=== PATIENT | female | born 1975 | race Caucasian/White ===

== ENCOUNTER 2016-10-02 00:15 | Day surgery (SDC) | payer BC ==
[2016-09-30 11:56] VITALS: BP 129/82
[2016-09-30 12:36] LABS: BASOPHIL # 0.1 10^3/uL (0.0-0.1); BASOPHIL % 0.4 % (0.0-0.2); EOSINOPHIL # 0.2 10^3/uL (0.0-0.2); EOSINOPHIL % 1.6 % (0.0-5.0); HEMATOCRIT 42.7 % (36.0-46.0); HEMOGLOBIN 14.6 g/dL (12.0-15.0); LYMPHOCYTES # 3.3 10^3/uL (1.0-4.8); LYMPHOCYTES % 24.8 % (24.0-44.0); MEAN CELL HGB 31.7 pg (26-34); MEAN CELL HGB CONCENTRATION 34.2 g/dL (33-37); MEAN CORP VOLUME 92.8 fL (78-100); MEAN PLATELET VOLUME 9.9 fL (7.8-11.0); MONOCYTES # 0.6 10^3/uL (0.3-0.8); MONOCYTES % 4.8 % (5.0-12.0); NEUTROPHIL # 9.2 10^3/uL (1.8-7.7); NEUTROPHILS % 68.3 % (41.0-85.0); RED BLOOD CELL 4.6 10^6/uL (4.00-5.20); RED CELL DISTRIBUTION WIDTH 12.5 % (11.5-14.5); WHITE BLOOD CELL 13.4 10^3/uL (4.5-11.0)
[2016-09-30 12:55] LABS: ANION GAP 18.4; CALCIUM 9.4 mg/dL (8.4-10.5); CARBON DIOXIDE 21.3 mmol/L (20.0-32); CREATININE SERUM 0.71 mg/dL (0.59-1.40); GLUCOSE 120 mg/dL (70-110)
[2016-09-30 13:21] LABS: INR 0.9; PARTIAL THROMBOPLASTIN TIME 25.6 SEC (24.67-30.72); PROTHROMBIN PROTIME 9.8 SEC (9.8-11.9)
--- NOTE | 2016-09-30 14:33 | DIREP ---
PROCEDURE:CHEST 2 VIEWS COMPARISON:None. INDICATIONS:PREOP CATH FINDINGS: LUNGS/PLEURA:No significant pulmonary parenchymal abnormalities. No effusions. VASCULATURE:Normal. Unremarkable pulmonary vasculature. CARDIAC:Normal. No cardiac silhouette abnormality or cardiomegaly. MEDIASTINUM:Normal. No visible mass or adenopathy. BONES:Normal. No fracture or visible bony lesion. OTHER:Negative. CONCLUSION:Normal examination. Dictated by: Elian Coulter Jr. on 09/30/2016 at 02:31 PM
[~2016-10-02] VITALS: Ht 165.1 cm; Wt 77.6 kg
[2016-10-02] VITALS (16 sets, daily range): BP systolic 109–149; BP diastolic 68–86
[~2016-10-02 00:15] MED LIST: ASPI-484 PO; ATOR40TA PO; MELO-174 PO; METO25TA4 PO
[2016-10-02] MEDS ORDERED: NS 1000ML 1,000 ML ONE ×2 (05:05→06:31)
[2016-10-02] MEDS ORDERED: PHENERGAN PO ONE (06:00)
[2016-10-02] MEDS ORDERED: NS 1000ML 1,000 ML IV SCH (06:00)
[2016-10-02] MEDS ORDERED: VALIUM PO ONE (06:00)
[2016-10-02] MEDS ORDERED: PHENERGAN ONE (06:07)
[2016-10-02] MEDS ORDERED: VALIUM ONE (06:08)
[2016-10-02] MEDS ORDERED: HEPARIN ONE (06:31)
[2016-10-02] MEDS ORDERED: SUBLIMAZE ONE (06:31)
[2016-10-02] MEDS ORDERED: XYLOCAINE ONE (06:32)
[2016-10-02] MEDS ORDERED: VERSED ONE (06:32)
--- NOTE | 2016-10-02 09:41 | [facility] ---
DATE OF SERVICE: 10/02/2016 PRECATHETERIZATION DIAGNOSES: History of palpitations, chest pain, abnormal myocardial perfusion scan with abnormal TID, and focal apical hypoperfusion, history of dyslipidemia. POSTCATHETERIZATION DIAGNOSES: Left main is very short and there is ventricularization of the aortic pressure on cannulation of the left main and there is no left main disease, it is very small with immediate bifurcation to LAD and circumflex, both LAD and circumflex are small caliber vessel without any plaque and appeared to be patent. The right coronary artery is a dominant vessel with the side branches again being very, very small caliber vessels and there is no flow obstructive disease documented. Left ventricle is normal in size with good wall contractility, ejection fraction is 60%. ANESTHESIA: 2% lidocaine in the right groin. PREOPERATIVE MEDICATIONS: Phenergan 50 mg p.o., Valium 2.5 mg p.o., Versed 1 mg IV and fentanyl 12.5 mcg IV. ANTICOAGULATION: Heparin 2000 units intra-arterially, 2000 units in the flush solution, 1000 units in the dye solution. Dye is Omnipaque. Total amount is 79 mL. CATHETERS: JL4 6-Icelandic, JR4 6-Icelandic, and 6-Icelandic angled pigtail catheter. ARTERIAL TIME: 17 minutes. FLUOROSCOPY TIME: 2.4 minutes. PROCEDURES: Left heart catheterization, bilateral selective coronary arteriography, left ventriculography via right femoral Celeste approach. NARRATION OF PROCEDURE: Under local anesthesia, the right femoral artery was punctured using open needle technique, and 6-Icelandic Cordis sheath was introduced into the femoral artery. Side port of the sheath was used for continuous monitoring of femoral arterial pressure. Subsequently, JL4 6-Icelandic left Celeste coronary catheter was introduced over a guidewire and navigated across the ascending aorta, and selective cannulation of left coronary artery was achieved. Left coronary arteriography was performed in GAMBIAN and DE PAZ projections using craniocaudal angulations for adequate visualization of all the branches. This catheter was then exchanged with JR4 6-Icelandic right coronary catheter which was manipulated, and selective cannulation of right coronary artery was achieved. Right coronary arteriography was performed in GAMBIAN and AP projections. Right coronary catheter was then exchanged with 6-Icelandic angled pigtail catheter which was navigated across the aortic valve. Hemodynamics were measured, and left ventriculography was performed in 30-degree DE PAZ projection using 35 mL of Isovue at 12 mL/sec at 600 PSI. Patient tolerated the procedure well. HEMODYNAMICS: LVEDP is 12 mm, LV pressure 130/12, femoral artery pressure 136/57 with a mean of 75. No gradient across the aorta on pullback of the central catheter. FINAL CONCLUSION: Short left main with ventricularization of the pressure, no left main disease, immediate bifurcation LAD and circumflex, small caliber LAD and circumflex fully patent, dominant right coronary artery without any flow obstruction, side branch is very small and patent right coronary artery, intact LV systolic function. RECOMMENDATIONS: At this time, risk factor modification and continuation aspirin and on low dose beta chris, metoprolol. Her right femoral artery went into spasm. Hence manual pressure was applied and good distal pulses were felt. Angio-Seal was not deployed. Laxmichand MD Jose Angel DR: RAMÓN/heladio JOB# [id number] CC: Rylee Ayers NP
== END 2016-10-02 12:35 | disposition home or self-care (01) ==
LOC: SDC 00:15
PROVIDERS: ATTEND Specialist
DX: E78.5 Hyperlipidemia, unspecified (principal)
CPT/HCPCS: 36415; 71020; 80048; 84703; 85025; 85610; 85730; 93458; C1894 ×3; J1644 ×2; J2250; J3010; J7030 ×2; Q9967; 81025

== ENCOUNTER → 2019-03-03 | Outpatient (CLI) | payer OTHER ==
[~2019-03-03] MED LIST changes: -MELO-174 PO; +MELO15TA24 PO
--- NOTE | 2019-03-03 13:48 | DIREP ---
PROCEDURE:US BREAST-RT CONCLUSION:Please refer to the accompanying Diagnostic Mammogram Report, which will be available once transcribed and signed. Dictated by: Jordy Rivera MD on 03/03/2019 at 01:47 PM
--- NOTE | 2019-03-03 13:48 | DIREP ---
PROCEDURE:MAMMO BILATERAL DIAGNOSTIC; RIGHT BREAST ULTRASOUND COMPLETE COMPARISON:[facility], US, US BREAST COMPLETE - RT, 03/03/2019, 12:47 PM. [facility] [place], , DIGITAL MAMMOGRAM SCREENING OUTREACH, 10/12/2015, 09:29 AM. INDICATIONS:N64.9 DISORDER OF BREAST, RIGHT BREAST NODULE BREAST COMPOSITION:There are scattered areas of fibroglandular density. DIAGNOSTIC MAMMOGRAM:2 standard views both breasts were supplemented by spot compression magnification 2 projections upper-outer quadrant of the right breast, all with a radiodense marker at the 11 o'clock radial 8 cm from the right nipple, the site where the patient reported a palpable abnormality had been detected. There is no lesions subjacent to the radiodense marker in the upper outer quadrant of the right breast, proximal aspect. Comparison with 2016 shows no interval change in the parenchymal pattern. The left breast is also stable and unchanged Computer Assisted Detection (CAD) was utilized. BREAST SONOGRAM:Complete ultrasound of right breast includes all 4 quadrants, subareolar, and the axillary region. Particular attention was paid to the 11 o'clock radial 8 cm from the nipple, the site of the mammographic marker indicating presumed location of palpable abnormality. No lesions are identified. All 4 quadrants were examined. The subareolar region is benign. The axilla is negative IMPRESSION:No mammographic evidence of malignancy. RECOMMENDATIONS: ROUTINE MAMMOGRAM AND CLINICAL EVALUATION. Repeat routine screening mammogram in one year based on [employer] Guidelines. OVERALL FINAL ASSESSMENT: BI RADS 1- Negative. Dictated by: Jordy Rivera MD on 03/03/2019 at 01:43 PM
--- NOTE | 2019-03-03 15:44 | DIREP ---
PROCEDURE:US PELVIC FOLLOWED BY TRANSVAGINAL COMPARISON:None. INDICATIONS:R10.2 PELVIC AND PERINEAL PAIN TECHNIQUE:Pelvic ultrasound using transabdominal technique. Endovaginal images were also obtained for better assessment of the uterus and adnexa. FINDINGS: LMP: 02/21/2019 UTERUS:Size is 8.1 x 6.8 x 4.4 cm. The myometrium is homogeneous. Solid heterogeneous lesion identified in the fundus measuring 2.5 x 2.5 x 2.0 cm. ENDOMETRIUM:Thickness is 1.5 cm. Although it is difficult due to the obliquity of the uterus in the pelvis, there appears to be a subtle near isoechoic/minimally hypoechoic mass within the endometrium measuring 2 x 1.2 x 0.9 cm. This may represent a retained blood clot but underlying endometrial mass or polyp is not excluded. No definite internal vascularity on the provided color Doppler images. RIGHT OVARY:Normal appearance. 3.8 x 2.9 x 2.4 cm. LEFT OVARY:Normal appearance. 3.9 x 2.2 x 1.7 cm. CUL-DE-SAC:Normal. OTHER:Negative. CONCLUSION: 1. Findings suspicious for an endometrial mass, recommend correlation with endometrial sampling and saline infusion sonography or hysteroscopy may add additional information. A retained blood clot or polyp could be considered, endometrial malignancy not excluded. 2. Uterus: Myometrial leiomyoma. Dictated by: KAYLEN Physician on 03/03/2019 at 02:07 PM
== END | disposition home or self-care (01) ==
LOC: RAD 11:50
PROVIDERS: ATTEND Nurse Practitioner Family
DX: D25.9 Leiomyoma of uterus, unspecified (principal); N64.9 Disorder of breast, unspecified; N63.10 Unspecified lump in the right breast, unspecified quadrant
CPT/HCPCS: 76641; 76830; 76856; 77066

== ENCOUNTER → 2020-03-28 | Outpatient (CLI) | payer OTHER ==
[~2020-03-28] MED LIST changes: -ASPI-484 PO; +ASPI-485 PO
--- NOTE | 2020-03-28 16:27 | DIREP ---
PROCEDURE:Digital Screening Mammogram TECHNIQUE:MLO, CC, and XCCL digital images of each breast are provided. Computer Assisted Detection (CAD) was utilized. COMPARISON:[facility], , DIGITAL MAMMOGRAM SCREENING OUTREACH, 10/12/2015, 09:29 AM. [facility], , MAMMO BILATERAL DIAGNOSTIC, 03/03/2019, 12:18 PM. INDICATIONS:SCREENING BREAST COMPOSITION:There are scattered areas of fibroglandular density. FINDINGS:There are no grouped microcalcifications, masses, or architectural distortions to suggest malignancy. There is no significant change as compared with the previous examination(s). IMPRESSION:No mammographic evidence of malignancy. RECOMMENDATIONS:Routine Screening Mammography per [employer] guidelines. OVERALL FINAL ASSESSMENT:BI-RADS 1 - Negative Mammogram Note: This facility participates in a mammography screening patient reminder system. Dictated by: Rajendra Chavez M.D. on 03/28/2020 at 04:24 PM
== END | disposition home or self-care (01) ==
LOC: RAD 15:45
PROVIDERS: ATTEND Nurse Practitioner Family
DX: Z12.31 Encounter for screening mammogram for malignant neoplasm of breast (principal)
CPT/HCPCS: 77067

== ENCOUNTER → 2020-05-10 | Outpatient (CLI) | payer OTHER | END | disposition home or self-care (01) | LOC: NPLAB 09:51 | PROVIDERS: ATTEND Nurse Practitioner Family | DX: Z00.5 Encounter for examination of potential donor of organ and tissue (principal) | CPT/HCPCS: 36415; 82565 ==

== ENCOUNTER → 2020-07-04 | Outpatient (CLI) | payer OTHER ==
[2020-07-04 12:52] LABS: APPEARANCE,URINE CLEAR (CLEAR); BILIRUBIN,URINE NEGATIVE (NEGATIVE); UA COLOR YELLOW (YELLOW); UROBILINOGEN,URINE NORMAL (NEGATIVE)
== END | disposition home or self-care (01) ==
LOC: NPLAB 11:52
PROVIDERS: ATTEND Internal Medicine Nephrology
DX: Z00.5 Encounter for examination of potential donor of organ and tissue (principal)
CPT/HCPCS: 36415; 81000; 82043; 82565; 82570; 87086

== ENCOUNTER → 2020-07-26 | Outpatient (CLI) | payer OTHER | END | disposition home or self-care (01) | LOC: NPLAB 10:34 | PROVIDERS: ATTEND Nurse Practitioner Family | DX: R82.90 Unspecified abnormal findings in urine (principal) | CPT/HCPCS: 87086 ==

== ENCOUNTER → 2020-11-10 | Outpatient (CLI) | payer OTHER ==
[2020-11-10 11:59] LABS: CARBON DIOXIDE 24.5 mmol/L (20.0-32)
[2020-11-10 12:11] LABS: BILIRUBIN,URINE NEGATIVE (NEGATIVE); UA COLOR YELLOW; UROBILINOGEN,URINE 0.2 E.U./dL (0.2)
== END | disposition home or self-care (01) ==
LOC: NPLAB 10:50
PROVIDERS: ATTEND Internal Medicine Nephrology
DX: N18.2 Chronic kidney disease, stage 2 (mild) (principal)
CPT/HCPCS: 36415; 80069; 81003

== ENCOUNTER → 2021-01-02 | Outpatient (CLI) | payer OTHER ==
[2021-01-02 11:39] LABS: BILIRUBIN,URINE NEGATIVE (NEGATIVE); CALCIUM 8.8 mg/dL (8.4-10.5); CARBON DIOXIDE 26.6 mmol/L (20.0-32); UA COLOR YELLOW; UROBILINOGEN,URINE 0.2 E.U./dL (0.2)
== END | disposition home or self-care (01) ==
LOC: NPLAB 11:02
PROVIDERS: ATTEND Internal Medicine Nephrology
DX: N18.2 Chronic kidney disease, stage 2 (mild) (principal)
CPT/HCPCS: 36415; 80069; 81001; 87086

== ENCOUNTER → 2021-03-29 | Outpatient (CLI) | payer OTHER ==
--- NOTE | 2021-03-29 12:56 | DIREP ---
PROCEDURE:Digital Screening Mammogram TECHNIQUE:MLO, CC, and XCCL digital images of each breast are provided. Computer Assisted Detection (CAD) was utilized. COMPARISON:[facility], , MAMMO BILATERAL DIAGNOSTIC, 03/03/2019, 12:18 PM. [facility], , DIGITAL MAMMOGRAM SCREENING OUTREACH, 10/12/2015, 09:29 AM. [facility], , MAMMO BILATERAL SCREENING, 03/28/2020, 04:31 PM. INDICATIONS:SCREENING BREAST COMPOSITION:Scattered areas fibroglandular density. FINDINGS:There are no grouped microcalcifications, masses, or architectural distortions to suggest malignancy. There is no significant change as compared with the previous examination(s). IMPRESSION:No mammographic evidence of malignancy. RECOMMENDATIONS:Routine Screening Mammography per [employer] guidelines. OVERALL FINAL ASSESSMENT:BI-RADS 1 - Negative Mammogram Note: This facility participates in a mammography screening patient reminder system. Dictated by: Rajendra Chavez M.D. on 03/29/2021 at 12:53 PM
== END | disposition home or self-care (01) ==
LOC: RAD 11:06
PROVIDERS: ATTEND Nurse Practitioner Family
DX: Z12.31 Encounter for screening mammogram for malignant neoplasm of breast (principal)
CPT/HCPCS: 77067

== ENCOUNTER 2021-06-19 08:33 | Emergency (ER) | payer OTHER ==
[~2021-06-19] VITALS: Ht 165.1 cm; Wt 72.6 kg
--- NOTE | 2021-06-19 09:16 | NUR ---
ARRIVAL PRESENTED TO ED RM#6 AMBULATORY WITH C/O ABD PAIN/NAUSEA/DIARRHEA THAT STARTED LAST NIGHT. VS OBTAINED. DR. MYLES NOTIFIED OF PATIENT ARRIVAL.
[2021-06-19] MEDS ORDERED: MORPHINE SULFATE IV STA (09:17)
[2021-06-19] MEDS ORDERED: NS 1000ML 1,000 ML IV STA (09:17)
[2021-06-19] MEDS ORDERED: ZOFRAN IV STA (09:17)
[2021-06-19 09:18] VITALS: BP 160/75
--- NOTE | 2021-06-19 09:23 | ER.PDOC ---
General Chief Complaint: Requesting Medical Care Stated Complaint: LOWER ABD PAIN,N Time seen by MD: 09:20 Source: patient Exam Limitations: no limitations History of Present Illness Initial Comments Lower abdominal pain, nausea and diarrhea this morning. Patient has had 2 episodes of loose stool. No vomiting, fever or chills. Severity/Quality: moderate, sharpness Radiation: no radiation Associated Symptoms: diarrhea, nausea/vomiting Exacerbated by: nothing Relieved By: nothing Allergies: Coded Allergies: No Known Allergies (Unverified , 10/01/16) Home Meds Reported Medications Aspirin (ASPIR 81) 81 Mg Tablet.dr, 1 TAB PO DAILY, #30 TAB 5 Refills 09/30/16 Metoprolol Tartrate 25MG (LOPRESSER 25MG) 25 Mg Tablet, 0.5 TAB PO DAILY, #180 TAB 1 Refill 09/30/16 Atorvastatin 40MG (LIPITOR 40MG) 40 Mg Tablet, 1 TAB PO HS, #90 TAB 1 Refill 09/30/16 Meloxicam (MELOXICAM) 15 Mg Tablet, 1 TAB PO DAILY, #30 TAB 2 Refills 09/30/16 Vital Signs First Vital Signs Date Time Temp Pulse Resp B/P (MAP) Pulse Ox O2 Delivery O2 Flow Rate FiO2 06/19/21 09:18 98.6 67 18 98 06/19/21 09:27 160/75 (103) Room Air Last Vital Signs Date Time Temp Pulse Resp B/P (MAP) Pulse Ox O2 Delivery O2 Flow Rate FiO2 06/19/21 09:27 98.6 67 18 160/75 (103) 98 Room Air Past Medical History Medical History: no pertinent history Surgical History: tubal Family History Significant Family History: no pertinent family hx Social History Smoking: non-smoker Alcohol Use: none Drug Use: none Constitutional: no symptoms reported EENTM: no symptoms reported Respiratory: no symptoms reported Cardiovascular: no symptoms reported Gastrointestinal: see HPI All Other Systems: Reviewed and Negative Physical Exam General Appearance: No Apparent Distress, WD/WN HEENT: PERRL/EOMI, Normal ENT Inspection, TMs Normal, Pharynx Normal Neck: Non-Tender, Full Range of Motion, Supple, Normal Inspection Respiratory: chest non-tender, lungs clear, normal breath sounds, no respiratory distress, no accessory muscle use Cardiovascular: Normal Peripheral Pulses, Regular Rate, Rhythm, No Edema, No Gallop, No JVD, No Murmur Gastrointestinal: Normal Bowel Sounds, No Organomegaly, No Pulsatile Mass, Guarding, Tenderness (lower abdomen) Back: Normal Inspection, No CVA Tenderness, No Vertebral Tenderness Extremities: Normal Range of Motion, Non-Tender, Normal Inspection, No Pedal Edema, No Calf Tenderness, Normal Capillary Refill, Pelvis Stable 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 (06/19/21 09:17) Urinalysis (06/19/21 09:17) Covid19 Antigen Marisa Carlee (06/19/21 09:17) 0.9 % Sodium Chloride (Ns 1000ml) (06/19/21 09:17) Morphine Sulfate (Morphine Sulfate) (06/19/21 09:17) Ondansetron Hcl/Pf (Zofran) (06/19/21 09:17) Hcg Urine (06/19/21 09:20) Urine Culture (06/19/21 09:05) 0.9 % Sodium Chloride (Ns 1000ml) (06/19/21 10:23) Ondansetron Hcl/Pf (Zofran) (06/19/21 10:23) Morphine Sulfate (Morphine Sulfate) (06/19/21 10:23) 0.9 % Sodium Chloride (Ns 100ml) (06/19/21 10:44) Piperacillin Sodium/Tazobactam (Zosyn 3. (06/19/21 10:52) Vital Signs Date Time Temp Pulse Resp B/P (MAP) Pulse Ox O2 Delivery O2 Flow Rate FiO2 06/19/21 09:27 98.6 67 18 160/75 (103) 98 Room Air 06/19/21 09:18 98.6 67 18 06/19/21 09:18 98.6 67 18 98 Administered Medications Medications (Trade) Dose Ordered Sig/Adalid Route PRN Reason Start Time Stop Time Status Last Admin Dose Admin Morphine Sulfate (Morphine Sulfate) 4 mg STAT STAT IV 06/19/21 09:17 06/19/21 09:20 DC 06/19/21 10:30 4 MG Ondansetron HCl (Zofran) 4 mg STAT STAT IV 06/19/21 09:17 06/19/21 09:20 DC 06/19/21 10:30 4 MG Piperacillin Sod/ Tazobactam Sod 3.375 gm/Sodium Chloride 100 ml @ 100 mls/hr STAT STAT IV 06/19/21 10:52 06/19/21 11:51 06/19/21 10:53 100 MLS/HR Sodium Chloride 1,000 ml @ 1,000 mls/hr Q1H STAT IV 06/19/21 09:17 06/19/21 10:16 DC 06/19/21 10:30 1,000 MLS/HR Laboratory Tests Test 06/19/21 09:05 White Blood Count 14.2 10^3/uL (4.5-11.0) H Red Blood Count 4.87 10^6/uL (4.00-5.20) Hemoglobin 14.6 g/dL (12.0-15.0) Hematocrit 45.6 % (36.0-46.0) Mean Corpuscular Volume 93.6 fL (78-100) Mean Corpuscular Hemoglobin 30.0 pg (26-34) Mean Corpuscular Hemoglobin Concent 32.0 g/dL (33-36.5) L Red Cell Distribution Width 14.6 % (11.5-14.5) H Platelet Count 342 10^3/uL (150-400) Mean Platelet Volume 9.9 fL (7.8-11.0) Neutrophils (%) (Auto) 78.7 % (41.0-85.0) Lymphocytes (%) (Auto) 12.0 % (24.0-44.0) L Monocytes (%) (Auto) 5.9 % (5.0-12.0) Neutrophils # (Auto) 11.2 10^3/uL (1.8-7.7) H Lymphocytes # (Auto) 1.71 10^3/uL1 (1.0-4.8) Monocytes # (Auto) 0.8 10^3/uL (0.3-0.8) Absolute Immature Granulocyte (auto 0.02 10^3 u/L (0-2) Absolute Eosinophils (auto) 0.4 10^3/uL (0.0-0.2) H Immature Granulocytes % 0.10 % (0.00-0.50) Eosinophils % 2.9 % (0.0-5.0) Basophils % 0.4 % (0.0-0.2) H Basophils # 0.1 10^3/uL (0.0-0.1) Prothrombin Time 9.6 SEC (9.6-12.0) Prothrombin Time INR (Non-Therap) 0.9 Activated Partial Thromboplast Time 23.4 SEC (24.67-30.72) Urine Collection Type RANDOM Urine Color YELLOW Urine Appearance CLEAR Urine Bilirubin NEGATIVE (NEGATIVE) Urine Ketones NEGATIVE (NEGATIVE) Urine Specific [place] 1.010 (1.005-1.030) Urine pH 5.0 (4.5-8.0) Urine Protein NEGATIVE (NEGATIVE) Urine Urobilinogen 0.2 E.U./dL (0.2) Urine Nitrate NEGATIVE (NEGATIVE) Urine Leukocyte Esterase 1+ (NEGATIVE) H Urine Glucose (Auto)(UA) NEGATIVE (NEGATIVE) Urine Blood 1+ (NEGATIVE) H Urine RBC 0-2 RBC/HPF (NONE SEEN) Urine WBC 2-5 WBC/HPF (0-2) Urine Squamous Epithelial Cells FEW (<=FEW) Urine Bacteria FEW (NONE SEEN) H Urine HCG, Qualitative NEGATIVE (NEGATIVE) Sodium Level 139 mmol/L (132-145) Potassium Level 4.0 mmol/L (3.6-5.2) Chloride Level 103.0 mmol/L (96-109) Carbon Dioxide Level 24.6 mmol/L (20.0-32) Anion Gap 15.4 Blood Urea Nitrogen 10 mg/dL (7-18) Creatinine 0.82 mg/dL (0.59-1.40) Estimated GFR () 90.4 (>/=60) Est GFR (CKD-EPI)(Non-Afr Croatian) 74.7 (>/=60) BUN/Creatinine Ratio 12.0 Glucose Level 112 mg/dL (70-110) H Calcium Level 9.2 mg/dL (8.4-10.5) Total Bilirubin 0.5 mg/dL (0.2-1.0) Aspartate Amino Transferase (AST) 12 U/L (0-35) Alanine Aminotransferase (ALT) 21 U/L (12-78) Alkaline Phosphatase 80 U/L (50-136) Total Protein 7.8 g/dL (6.4-8.2) Albumin 4.2 g/dL (3.4-5.0) Globulin 3.6 Albumin/Globulin Ratio 1.166 Lipase 104 U/L (114-286) L Helicobacter pylori Screen NEGATIVE (NEGATIVE) SARS-CoV-2 Antigen (Rapid) NEGATIVE (NEGATIVE) Progress Progress CT abdomen/pelvis: Acute diverticulitis of the proximal sigmoid colon. No adjacent collection to suggest abscess. No overt pneumoperitoneum. 2. Sleeve gastrectomy change. 3. Cholecystectomy change. No biliary duct dilation. 4. Rounded low densities of the cervix may be on the basis of large nabothian cysts. In addition there is ill-defined rounded low-density the left uterine body which may be on the basis of fibroid. Consider further evaluation with pelvic ultrasound in a nonemergent setting. 5. Additional findings as above. WBC is 14.2 and chemistry is unremarkable. Reviewed findings with the patient and told her that she needs to follow-up with a certified hand therapist because of the findings on the CT. She voices understanding. She also notes that she will need a pelvic sonogram on a nonemergent basis. Patient received a dose of Zosyn here. ER DEPART Departure Time of Disposition: 10:57 Disposition: 01 HOME / SELF CARE / HOMELESS Impression: Primary Impression: Acute diverticulitis of intestine Condition: Stable Referrals: [facility] [employer] (PCP) PRIMARY CARE PROVIDER Additional Instructions: Cipro Flagyl Tramadol Follow-up with your PCP in 2 to 3 days Follow-up with a certified hand therapist this week, call for appointment Return to ED if worsening symptoms or concerns Duration or Time Spent with Pa: 60 min MISTI MYLES MD Jun 19, 2021 09:23
[2021-06-19 09:25] LABS: BASOPHIL # 0.1 10^3/uL (0.0-0.1); BASOPHIL % 0.4 % (0.0-0.2); EOSINOPHIL # 0.4 10^3/uL (0.0-0.2); EOSINOPHIL % 2.9 % (0.0-5.0); LYMPHOCYTES # 1.71 10^3/uL1 (1.0-4.8); MONOCYTES # 0.8 10^3/uL (0.3-0.8); MONOCYTES % 5.9 % (5.0-12.0); NEUTROPHIL # 11.2 10^3/uL (1.8-7.7); NEUTROPHILS % 78.7 % (41.0-85.0); PLATELET COUNT 342 10^3/uL (150-400); RED CELL DISTRIBUTION WIDTH 14.6 % (11.5-14.5)
[2021-06-19 09:27] VITALS: BP 160/75
[2021-06-19 09:30] LABS: BILIRUBIN,URINE NEGATIVE (NEGATIVE); UROBILINOGEN,URINE 0.2 E.U./dL (0.2)
[2021-06-19 09:40] LABS: CARBON DIOXIDE 24.6 mmol/L (20.0-32)
[2021-06-19] MEDS ORDERED: ZOFRAN ONE (10:23)
[2021-06-19] MEDS ORDERED: MORPHINE SULFATE ONE (10:23)
[2021-06-19] MEDS ORDERED: NS 1000ML 1,000 ML ONE (10:23)
--- NOTE | 2021-06-19 10:28 | DIREP ---
PROCEDURE:CT ABD/PELVIS W/ CONTRAST TECHNIQUE:Multiple axial CT images of the abdomen and pelvis were obtained with the use of intravenous contrast. Coronal and sagittal reformats performed. COMPARISON:None. INDICATIONS:Lower abdominal pain FINDINGS: LOWER CHEST:The lung bases are clear. LIVER:Normal. BILIARY:Cholecystectomy change. No biliary duct dilation. PANCREAS:Normal. SPLEEN:Normal. URINARY TRACT:Normal. ADRENALS:Normal. AORTA/VASCULAR:Normal. RETROPERITONEUM:Normal. BOWEL/MESENTERY:Postsurgical change consistent with sleeve gastrectomy. Multiple colonic diverticuli. Significant fat stranding is seen about the proximal sigmoid colon, likely on the basis of acute diverticulitis. There are several punctate foci of air adjacent to this area which are likely on the basis of micro perforation. No overt pneumoperitoneum. No adjacent collection to suggest abscess. Appendix is normal. ABDOMINAL WALL:Small fat containing umbilical hernia. PELVIS:Benign-appearing right ovarian cyst. Rounded low densities at the cervix is may be on the basis of multiple large nabothian cysts. Ill-defined rounded low-density at left uterine body may be on the basis of a fibroid. Consider further evaluation with pelvic ultrasound. Urinary bladder is unremarkable for degree distention. BONES:Posterior instrumentation and fusion as well as posterior decompression of the lower lumbar spine. No aggressive osseous lesions. Mild degenerative changes spine. OTHER:Normal. CONCLUSION: 1. Acute diverticulitis of the proximal sigmoid colon. No adjacent collection to suggest abscess. No overt pneumoperitoneum. 2. Sleeve gastrectomy change. 3. Cholecystectomy change. No biliary duct dilation. 4. Rounded low densities of the cervix may be on the basis of large nabothian cysts. In addition there is ill-defined rounded low-density the left uterine body which may be on the basis of fibroid. Consider further evaluation with pelvic ultrasound in a nonemergent setting. 5. Additional findings as above. Dictated by: Chance Griffin MD on 06/19/2021 at 10:21 AM
[2021-06-19] MEDS ORDERED: NS 100ML 100 ML IV ONE (10:44)
[2021-06-19] MEDS ORDERED: ZOSYN 3.375 GM 3.375 GM in NS 100ML 100 ML IV STA (10:52)
[2021-06-19 11:17] VITALS: BP 130/70
== END 2021-06-19 11:15 | disposition home or self-care (01) ==
LOC: ER 08:33
DX: K57.92 Diverticulitis of intestine, part unspecified, without perforation or abscess without bleeding (principal); Z20.822 Contact with and (suspected) exposure to COVID-19; Z79.1 Long term (current) use of non-steroidal anti-inflammatories (NSAID); Z79.82 Long term (current) use of aspirin; Z79.899 Other long term (current) drug therapy
CPT/HCPCS: 74177; 80053; 81001; 81025; 83690; 85025; 85610; 85730; 86677; 87086; 87426; 96365; 96375; 99285; J2270; J2405; J2543; J7030; Q9965

== ENCOUNTER → 2021-09-12 | Outpatient (CLI) | payer OTHER ==
[2021-09-12 12:15] LABS: BILIRUBIN,URINE NEGATIVE (NEGATIVE); UROBILINOGEN,URINE 0.2 E.U./dL (0.2)
[2021-09-12 12:40] LABS: CARBON DIOXIDE 26.5 mmol/L (20.0-32)
== END | disposition home or self-care (01) ==
LOC: LAB 11:45
PROVIDERS: ATTEND Internal Medicine Nephrology
DX: N18.2 Chronic kidney disease, stage 2 (mild) (principal)
CPT/HCPCS: 36415; 80069; 81001

== ENCOUNTER → 2024-06-18 | Outpatient (CLI) | payer OTHER | END | disposition home or self-care (01) | LOC: LAB 10:24 | PROVIDERS: ATTEND Nurse Practitioner Family | DX: I10 Essential (primary) hypertension (principal) | CPT/HCPCS: 36415; 84439; 84443 ==

== ENCOUNTER → 2024-07-13 | Outpatient (CLI) | payer OTHER | END | disposition home or self-care (01) | LOC: RAD 08:24 | PROVIDERS: ATTEND Internal Medicine | DX: I08.1 Rheumatic disorders of both mitral and tricuspid valves (principal); R00.2 Palpitations | CPT/HCPCS: 93306 ==

== ENCOUNTER → 2024-10-28 | Outpatient (CLI) | payer OTHER | END | disposition home or self-care (01) | LOC: RAD 09:43 | PROVIDERS: ATTEND Nurse Practitioner Family | DX: Z12.31 Encounter for screening mammogram for malignant neoplasm of breast (principal); R92.323 Mammographic fibroglandular density, bilateral breasts | CPT/HCPCS: 77063; 77067 ==